=== PATIENT | male | born 1960 | race Caucasian/White ===

== ENCOUNTER 2016-10-23 09:33 | Outpatient (CLI) | payer OTHER ==
[2016-10-23 10:57] LABS: eGFR (African) > 60; eGFR (Non-African) > 60
== END 2016-10-23 09:34 ==
LOC: LAB 09:33
PROVIDERS: ATTEND Family Medicine
DX: E11.9 Type 2 diabetes mellitus without complications (principal); M10.9 Gout, unspecified; E03.9 Hypothyroidism, unspecified
CPT/HCPCS: 36415; 80053; 80061; 82043; 83036; 84443; 84550; 86803

== ENCOUNTER 2017-10-02 15:10 | Outpatient (CLI) | payer OTHER | END 2017-10-02 15:11 | LOC: POD 15:10 | PROVIDERS: ATTEND Podiatrist | DX: L03.039 Cellulitis of unspecified toe (principal); L60.0 Ingrowing nail ==

== ENCOUNTER 2017-10-06 14:58 | Outpatient (CLI) | payer OTHER | END 2017-10-06 15:00 | LOC: POD 14:58 | PROVIDERS: ATTEND Podiatrist | DX: L60.0 Ingrowing nail (principal); L03.039 Cellulitis of unspecified toe ==

== ENCOUNTER 2017-11-23 11:20 | Day surgery (SDC) | payer OTHER ==
[~2017-11-23 11:20] MED LIST: LACTATED RINGERS 1,000 ML IV.SOLN IV ONE; PROPOFOL 200 MG/20 ML VIAL IV ONE; PROPOFOL 500 MG/50 ML VIAL IV ONE; SALINE FLUSH 10 ML DISP.SYRIN IVF ONE
--- NOTE | 2017-11-24 09:56 | GI Report ---
REFERRING PHYSICIAN: Dr. Jonathan Aldrich SHACTOR: Luis Sosa MD PROCEDURE MEDICATION: Propofol as per anesthesia. INDICATIONS: This 57-year-old man had a colonoscopy 10 years ago. He denies any change in his stools. He also has been stable cardiopulmonary garcia. PROCEDURE PERFORMED: Colonoscopy. PROCEDURE: An Olympus video colonoscope was advanced to the rectum and the colonoscope was slowly advanced all the way to the cecum. The appendiceal orifice and ileocecal valve were normal. On slow withdrawal, the cecum, ascending colon, and transverse colon with no obvious intraluminal lesions noted. The descending colon and sigmoid had some redundancy but no obvious intraluminal lesions were noted. Retroflexion of the rectum was normal. Patient tolerated the procedure well. FINDINGS: Normal screening colonoscopy. RECOMMENDATIONS: 1. Continue high-fiber diet. 2. Consider re-looking at his colon in 10 years, sooner if clinically indicated. 3. Follow up with Dr. Aldrich. cc: Dr. Jonathan CUETO
== END 2017-11-23 11:23 ==
LOC: OPSURG 11:20
PROVIDERS: ATTEND Internal Medicine Gastroenterology
DX: Z12.11 Encounter for screening for malignant neoplasm of colon (principal)
CPT/HCPCS: J2704; J7120; 45378; S1016